=== PATIENT | male | born 1970 | race Caucasian/White ===

== ENCOUNTER 2020-08-25 10:33 | Outpatient (CLI) | payer OTHER, SELFPAY ==
[2020-08-25 11:11] LABS: Basophils Percent Auto 0.4 % (0.2-1.2); Eosinophils Percent Auto 0.5 % (0-4.4); Hematocrit 47.9 % (42.0-52.0); Hemoglobin 16.9 g/dL (14.0-18.0); Immature Granulocyte Absolute 0.03 K/mm3 (0.00-0.031); Immature Granulocyte Percent A 0.4 % (0-0.5); Lymphocytes Absolute Auto 1.67 K/mm3 (0.9-3.2); Lymphocytes Percent Auto 21.5 % (18.3-44.2); Mean Corpuscular HGB Conc 35.3 g/dl (32-36); Mean Corpuscular Hemoglobin 30.1 pg (26-34); Mean Corpuscular Volume 85.2 fl (80-100); Mean Platelet Volume 10.4 fl (7.4-10.4); Monocytes Absolute Auto 0.5 K/mm3 (0.1-0.6); Monocytes Percent Auto 6.1 % (2.6-8.5); Neutrophils Absolute Auto 5.5 K/mm3 (1.3-6.7); Neutrophils Percent Auto 71.1 % (45.5-73.1); Platelet Count Result 182 k/mm3 (150-375); Red Blood Count 5.62 M/mm3 (4.6-6.20); Red Cell Distribution Width 11.7 % (11.5-14.5); White Blood Count 7.8 K/mm3 (4.5-10.0)
[2020-08-25 11:21] LABS: Add Urine Microscopic? NO; Appearance Urine Clear (Clear); Bilirubin Urine Negative (Negative); Blood Urine Negative (Negative); Color Urine Straw (Yellow); Glucose Urine UA Negative (Negative); Ketones Urine Negative (Negative); Leukocyte Esterase Ur Negative LEU/UL (NEGATIVE); Mucus Urine Rare /lpf; Nitrate Urine Negative (Negative); Protein Urine Negative (Negative); RBC Urine 0-2 /hpf (0-2); Specific Grav Ur 1.012 (1.001-1.035); Squamous Epithelial Cell Urine Few /hpf (Few); Urobilinogen Urine Negative mg/dL (<2.0); WBC Urine 0-3 /hpf (0-3)
[2020-08-25 11:23] LABS: Hemoglobin A1C 6.2 % (<5.7)
[2020-08-25 11:25] LABS: Alanine Aminotransferase 31 U/L (4-50); Albumin Level 4.1 g/dL (3.5-5.1); Alkaline Phosphatase 69 U/L (38-126); Anion Gap 8 mmol/L (8-16); Aspartate Amino Transferase 18 U/L (17-59); Bilirubin,Total 0.4 mg/dL (0.2-1.3); Blood Urea Nitrogen 20 mg/dL (9-20); Calcium 9.2 mg/dL (8.4-10.2); Carbon Dioxide 29 mmol/L (22-30); Chloride 105 mmol/L (98-107); Cholesterol 165 mg/dL (0-200); Estimated Glomerular Filt Rate > 60; Glucose 131 mg/dL (75-110); HDL Direct 36 mg/dL; Potassium 4.3 mmol/L (3.4-5.0); Sodium 142 mmol/L (137-145); Triglycerides 68 mg/dL (<150)
[2020-08-25 11:37] LABS: LDL Cholesterol Direct 121 mg/dL
[2020-08-25 11:50] LABS: Thyroid Stimulating Hormone < 0.015 uIU/mL (0.465-4.680)
[2020-08-25 11:53] LABS: Prostate Specific Antigen 0.6 ng/mL (< OR = 4.0)
== END 2020-08-25 10:34 | disposition home or self-care (01) ==
LOC: ANHLAB 10:38
PROVIDERS: Internal Medicine Endocrinology, Diabetes & Metabolism; PCP Family Medicine; Visit Provider Physician Assistant
DX: E78.5 Hyperlipidemia, unspecified (principal); R73.03 Prediabetes; Z00.00 Encounter for general adult medical examination without abnormal findings; E05.90 Thyrotoxicosis, unspecified without thyrotoxic crisis or storm; Z12.5 Encounter for screening for malignant neoplasm of prostate
CPT/HCPCS: 36415; 80053; 80061; 81003; 83036; 84153; 84439; 84443; 85025; G0103

== ENCOUNTER 2020-09-29 10:29 | Outpatient (CLI) | payer OTHER, SELFPAY ==
[2020-09-29 11:43] LABS: Thyroid Stimulating Hormone 0.988 uIU/mL (0.465-4.680)
[2020-09-29 11:49] LABS: Free T4 Free Thyroxine 0.67 ng/mL (0.78-2.19)
[2020-10-06 06:58] LABS: Triiodothyronine T3 Free 3.5 pg/mL (2.3-4.2)
== END 2020-09-29 10:30 | disposition home or self-care (01) ==
PROVIDERS: PCP Family Medicine; Visit Provider Internal Medicine Endocrinology, Diabetes & Metabolism
DX: E05.90 Thyrotoxicosis, unspecified without thyrotoxic crisis or storm (principal); E04.9 Nontoxic goiter, unspecified
CPT/HCPCS: 36415; 84439; 84443; 84481

== ENCOUNTER → 2020-10-28 17:22 | Outpatient (CLI) | payer OTHER, SELFPAY ==
--- NOTE | ~2020-10-28 | XR_ITS ---
EXAMINATION: XR shoulder LT min 2V EXAM DATE: 10/28/2020 17:45 INDICATION: M25.512 - Pain in left shoulder . No known recent injury. TECHNIQUE: The following left shoulder projections obtained: frontal projection with internal rotatio n, frontal projection with external rotation, Grashey, and axillary (4+ views). Comparison is made to prior examination from 06/06/2016. FINDINGS: No evidence of left shoulder rotator cuff calcific tendinosis. There is mild left glenoh umeral and acromioclavicular primary osteoarthritis. There are no acute fractures or dislocations nita ntified. There is no subcutaneous gas. The soft tissue is unremarkable. There are no radiopaque f oreign bodies. IMPRESSION: Mild left shoulder osteoarthritis. Reviewed, dictated and finalized at location A. [employer] SERVICES SALES REPRESENTATIVE
== END ==
PROVIDERS: PCP Family Medicine; Visit Provider Physician Assistant
DX: M19.012 Primary osteoarthritis, left shoulder (principal)
CPT/HCPCS: 73030

== ENCOUNTER 2020-11-16 17:29 | Outpatient (CLI) | payer OTHER, SELFPAY ==
[2020-11-16 18:28] LABS: Thyroid Stimulating Hormone 0.921 uIU/mL (0.465-4.680); Total Triiodothyronine (T3) 1.23 NG/ML (0.97-1.69)
[2020-11-16 18:35] LABS: Free T4 Free Thyroxine 0.75 ng/mL (0.78-2.19)
== END 2020-11-16 17:30 | disposition home or self-care (01) ==
LOC: ANHLAB 17:30
PROVIDERS: PCP Family Medicine; Visit Provider Internal Medicine Endocrinology, Diabetes & Metabolism
DX: E05.90 Thyrotoxicosis, unspecified without thyrotoxic crisis or storm (principal)
CPT/HCPCS: 36415; 84439; 84443; 84480

== ENCOUNTER → 2020-11-24 13:16 | Outpatient (CLI) | payer OTHER, SELFPAY ==
--- NOTE | ~2020-11-24 | CT_ITS ---
EXAMINATION:CT chest wo con DATE: 11/24/2020 13:28 INDICATION: Solitary pulmonary nodule. TECHNIQUE: Computed tomography (CT) of the chest was performed without intravenous contrast. Automate d exposure control and iterative reconstruction technique were employed. The dose-length product (DLP ) was 367.87 mGy-cm. COMPARISON: Chest CT 07/24/2019, thyroid ultrasound 09/10/2018 FINDINGS: Calcified right lung nodules and calcified right hilar and mediastinal lymph nodes are cons istent with old granulomatous disease. There are a few scattered noncalcified nodules in the lungs me asuring up to 4 mm. No pleural effusion. There is a chronic multinodular goiter, likely not clinicall y significant. There is left ventricular enlargement of the heart. There are coronary artery calcific ations. No pericardial effusion. There is mild thoracic spondylosis. IMPRESSION: 1. Chronic small pulmonary nodules, likely benign. Reviewed, dictated and finalized at location A. [facility]
== END ==
PROVIDERS: Visit Provider Family Medicine
DX: R91.1 Solitary pulmonary nodule (principal); E04.1 Nontoxic single thyroid nodule; I25.10 Atherosclerotic heart disease of native coronary artery without angina pectoris; M47.814 Spondylosis without myelopathy or radiculopathy, thoracic region
CPT/HCPCS: 71250

== ENCOUNTER 2020-12-10 08:41 | Outpatient (CLI) | payer OTHER, SELFPAY ==
--- NOTE | ~2020-12-10 | MR_ITS ---
EXAMINATION: MR shoulder LT wo con DATE: 12/10/2020 09:34 INDICATION: Left shoulder pain TECHNIQUE: Magnetic resonance imaging (MRI) of the left shoulder was performed without intravenous co ntrast. Sequences included axial PD-weighted FS FSE, coronal oblique PD-weighted FS FSE, coronal obli que T2-weighted FS FSE, sagittal PD-weighted FS FSE, and sagittal T1-weighted SE. COMPARISON: None. FINDINGS: Coracoacromial arch: The acromion undersurface is curved in morphology (type II). The coracoacromial ligament is normal. M ild acromioclavicular osteoarthritis. Rotator cuff: MODERATE supraspinatus and mild infraspinatus tendinopathy. There is a predominantly articular sided tear along the superior facet footplate of the supraspinatus tendon which extends 9 mm AP and involve s approximately 50% of the tendon thickness throughout the majority of its width. There is a tiny ful l-thickness component which extends to the articular surface at the posterior margin of the tear. The re is approximately 5 mm retraction of the torn articular sided fibers. The teres minor tendon is nor mal. Mild subscapularis tendinopathy without discrete tear. Normal rotator cuff muscle bulk and signa l. Biceps tendon, glenoid labrum and glenohumeral cartilage: Long head of the biceps tendon is normal. Small linear tear extending peripherally into the substance of the superior glenoid labrum with more irregular degenerative tearing at the 10:30 position of the posterior superior labrum. Glenohumeral cartilage is normal. Fluid: Small amount of fluid in the long head biceps tendon sheath which is disproportionate to the physiolo gic amount of fluid in the glenohumeral joint space consistent with mild bicipital tenosynovitis. No loose osteochondral bodies. Small amount of fluid in the subacromial/subdeltoid bursa consistent with mild bursitis. Bones: Normal marrow signal with no edema, fracture or abnormal marrow replacing process. Mild cystic change at the greater tuberosity and at the cephalad aspect of the lesser tuberosity along the medial rim o f the intertubercular groove. IMPRESSION: 1. Mild to moderate supraspinatus tendinopathy with anomaly partial-thickness articular sided tear al anson the superior facet footplate with tiny posterior full-thickness component. 2. Tear at the superior to posterior superior glenoid labrum. 3. Mild bicipital tenosynovitis and mild subacromial/subdeltoid bursitis. Reviewed, dictated and finalized at location B. TY LIBRARY DIRECTOR IMPRESSION: 1. Mild to moderate supraspinatus tendinopathy with anomaly partial-thickness a rticular sided tear along the superior facet footplate with tiny posterior full -thickness component. 2. Tear at the superior to posterior superior glenoid labrum. 3. Mild bicipital tenosynovitis and mild subacromial/subdeltoid bursitis.
== END 2020-12-10 08:42 | disposition home or self-care (01) ==
LOC: ANHIMG 08:46
PROVIDERS: Family Provider Family Medicine; PCP Family Medicine; Visit Provider Orthopaedic Surgery
DX: S43.432A Superior glenoid labrum lesion of left shoulder, initial encounter (principal); M75.52 Bursitis of left shoulder; M75.22 Bicipital tendinitis, left shoulder
CPT/HCPCS: 73221

== ENCOUNTER → 2021-01-15 01:55 | Outpatient (CLI) | payer OTHER, SELFPAY ==
[2021-01-16 08:28] LABS: SARS-CoV-2 RNA PCR Negative
== END ==
PROVIDERS: PCP Family Medicine; Visit Provider Orthopaedic Surgery
DX: Z01.812 Encounter for preprocedural laboratory examination (principal); Z20.822 Contact with and (suspected) exposure to COVID-19
CPT/HCPCS: C9803; U0003; U0005

== ENCOUNTER 2021-01-15 08:05 | Outpatient (CLI) | payer OTHER, SELFPAY ==
--- NOTE | 2021-01-15 08:30 | ECG_ITS ---
Measurements Intervals [place] Rate: 62 P: 29 DE: 172 QRS: 34 QRSD: 104 T: 1 QT: 360 QTc: 367 Interpretive Statements SINUS RHYTHM DELAYED PRECORDIAL R/S TRANSITION VOLTAGE CRITERIA FOR LVH BORDERLINE ST-T WAVE ABNORMALITY- INFERIOR LEADS BASELINE ARTIFACT- I, II, AVR, V6 BORDERLINE ECG Electronically Signed On 01-15-2021 8:20:19 RIG WELDER by Danish Camacho D.O.
== END 2021-01-15 08:06 | disposition home or self-care (01) ==
LOC: ANHSURGERY 08:09
PROVIDERS: PCP Family Medicine; Visit Provider Orthopaedic Surgery
DX: E78.5 Hyperlipidemia, unspecified (principal); Z01.818 Encounter for other preprocedural examination; R94.31 Abnormal electrocardiogram [ECG] [EKG]
CPT/HCPCS: 93005

== ENCOUNTER 2021-01-18 01:26 | Day surgery (SDC) | payer OTHER, SELFPAY ==
[2021-01-12 12:51] VITALS: BMI 36.0
[2021-01-18] VITALS (8 sets, daily range): BP systolic 118–144; BP diastolic 72–86; PULSE 56–82; RESP 11–20; TEMP 36.3–36.4; O2SAT 97–100
--- NOTE | 2021-01-18 06:55 | P.PNAN_ITS ---
Anes - Initial Pre Proc Eval Procedure: Operation Date: 01/18/21 07:30 Proposed Procedures p Left Rotator Cuff Repair Acromioplasty With Distal Clavicle Excision - Roman Hopknis MD Date/Time: 01/18/21 06:55 Surgeon: Roman Hopkins MD Pre Op Diagnosis: Left Rotator Cuff Tear, AC Arthritis Patient Data Age: 50 Gender: M Height: 5 ft 10 in Weight: 114 kg Allergies Allergy/AdvReac Type Severity Reaction Status Date / Time No Known Allergies Allergy Verified 01/18/21 06:54 Home Medications Medication Instructions Recorded Confirmed Type atorvastatin 40 mg tablet 40 mg PO DAILY #90 tablet 07/06/20 01/13/21 Rx methimazole [Tapazole] See Rx Instructions .ROUTE .COMPLEX 01/12/21 01/13/21 History Patient hx anesthesia problems: post op nausea/vomiting Family hx anesthesia problems: none PMFSH Past Medical History Medical History BMI 37.0-37.9, adult Left rotator cuff tear Left shoulder pain Surgical History Surgical History H/O shoulder surgery right Acromioplasty and distal clavicle excision, May 2015 Family History Family History Father Family history of obesity Family history of blood dyscrasia Depression Hypertension Family history of alcoholism Family history of diabetes mellitus in first degree relative Family history of elevated blood lipids, Onset Age: 35 Grandparent Family history of obesity Hypertension Asthma Cerebrovascular accident Family history of Alzheimer's disease Mother Family history of mental disorder Depression Family history of migraine headaches Hypertension Family history of diabetes mellitus in first degree relative Sibling Patient's sister is in good health, Onset Age: 38 Social History Social History Smoking status: Never smoker Smoking end date: 11/13/16 Alcohol intake: current Substance use: never Living arrangements: with friend(s) 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 Questions were solicited and answers provided to the satisfaction of the patient/family/POA.
[2021-01-18] MEDS: ACETAMINOPHEN 500 MG TABLET 1000 MG PO (07:06)
[2021-01-18] MEDS: LACTATED RINGERS 1,000 ML 30 ML IV CONT ×2 (07:10→09:20)
--- NOTE | 2021-01-18 07:10 | WPDHPUPDATE1 ---
History and Physical Update Update Date/Time: 01/18/21 07:10 History and Physical has been reviewed, including an updated exam of the patient. There are NO changes in the patient's condition. Risks, benefits, and alternatives have been discussed and questions answered. Patient agrees to proceed with procedure.
[2021-01-18] MEDS: KETOROLAC 15 MG/ML VIAL (*BKC) IV PUSH (07:11)
[2021-01-18] MEDS: ceFAZolin 2 GM/D5W 50 ML 2 GM/50 ML BAG IVPB (07:35)
[2021-01-18] MEDS: BUPIVACAINE/EPINEPHRINE 0.25% 50 ML VIAL INFILTRATE (08:15)
--- NOTE | 2021-01-18 09:06 | P.OP_ITS ---
Procedure Note - Detailed Date of procedure: 01/18/21 Pre-op diagnosis: Left Rotator Cuff Tear, AC Arthritis Post-op diagnosis: same Procedure performed: Left rotator cuff repair with distal clavicle excision Description of procedure: Patient was identified and proper site identified. He was then taken to the operating room and transferred to the or table taking care to pad the torso and extremities. After general anesthetic induction and intubation, he was put in a semi beach chair position in the usual manner for a left shoulder procedure. His head was secured taking care to neither rotate nor extend the head and neck. The left upper extremity was prepped and draped free in usual sterile fashion. The subcutaneous tissue in the area of the incision was injected with 10 cc of 0.25% Marcaine and epinephrine solution. An oblique anterior incision was made extending from the AC joint distally in line with the fibers of the deltoid. Subcutaneous tissue was sharply dissected down to the deltoid fascia. The deltoid was dissected off the anterior portion of the acromion in the distal end of the clavicle. A 2 cm split was made at the junction between the anterior and middle thirds of the deltoid. Using the microsagittal saw the last 8 mm of clavicle removed. The saw was also used to perform the acromioplasty and then the undersurface of the acromion was rasped smooth. There was thickened inflamed bursa which was debrided off of the rotator cuff allowing for full inspection. There was an erosive type tear at the anterior portion of the supraspinatus. Tendon edges were freshened up and the tuberosity was prepared for the repair. This was carried out with 2. Ethibond suture through a bony bridge. The remainder of the repair was carried out with 2. Ethibond in a [id number] fashion. This gave a cotton repair which was stable as the shoulder was taken through range of motion. The wound was irrigated with sterile NaCl solution. Catheter for the pain pump was placed into the subacromial space taking sure not to entrap during the closure. Once the wound was closed, it was hooked up to the reservoir which had been filled with 100 mL of 1% lidocaine running at a 2 mL/hour rate. The deltoid was repaired back to the acromion with 2. Ethibond suture passed through bone and the remainder of the deltoid repair carried out with 2. Vicryl. Subcutaneous tissue was reapproximated with 2. Strata fix and then tissue adhesive used for the skin. Sterile dressing was applied. There were no known intraoperative complications, and perioperative antibiotics were administered. Anesthesia: GETA Surgeon: Roman Hopkins MD Entry Level Automotive Technician: Brenda Marte Estimated blood loss (mL): 30 Drains: No Packing: No Pathology: none sent Complications: No immediate complications Condition: stable Disposition: PACU
== END 2021-01-18 11:20 | disposition home or self-care (01) ==
PROVIDERS: PCP Family Medicine; Visit Provider Orthopaedic Surgery
PROC: (CPT 23420; principal; 2021-01-18 07:30)
DX: M75.112 Incomplete rotator cuff tear or rupture of left shoulder, not specified as traumatic (principal); M19.012 Primary osteoarthritis, left shoulder; E66.9 Obesity, unspecified; Z68.37 Body mass index [BMI] 37.0-37.9, adult
CPT/HCPCS: 23412; 23120; A4565; A9270; J0690; J1100; J1170; J1885; J2250; J2405; J2704; J2710; J3010; J7120

== ENCOUNTER 2021-07-07 12:25 | Outpatient (CLI) | payer OTHER, SELFPAY ==
--- NOTE | ~2021-07-07 | US_ITS ---
EXAMINATION: US thyroid DATE: 07/07/2021 12:52 INDICATION: Thyroid nodules TECHNIQUE: Multiple ultrasound images of the thyroid were obtained. COMPARISON: 09/10/2018 FINDINGS: The right thyroid lobe measures 6.9 x 3.5 x 3.9 cm. The left thyroid lobe measures 5.2 x 1.4 x 1.2 c m. Wider than tall 3.8 cm solid hypoechoic nodule with smooth margins and without echogenic foci in the right thyroid lobe (TI-RADS 4, moderately suspicious , FNA if >=1.5 cm, annual followup is >=1 cm ) which is slightly decreased in size since the prior study. No significant interval change in a 9 mm very hypoechoic wider than tall solid nodule with smooth margins and without echogenic foci, also TI RADS 4 at the superior right thyroid. No significant interval change in an 8 mm wider than tall very hypoechoic nodule with single echogenic focus in smooth margins in the superior left thyroid lobe (T I-RADS 5, highly suspicious , FNA if >=1.0 cm, annual followup is >0.5 cm). IMPRESSION: 1. No significant interval change in 3 thyroid nodules, the largest 3.8 cm TI RADS 4 nodule with prio r biopsy consistent with benign follicular nodule and the 2 additional subcentimeter nodules below size criteria for biopsy. Reviewed, dictated and finalized at location B. IMPRESSION: 1. No significant interval change in 3 thyroid nodules, the largest 3.8 cm TI R ADS 4 nodule with prior biopsy consistent with benign follicular nodule and t he 2 additional subcentimeter nodules below size criteria for biopsy.
[2021-07-07 14:02] LABS: Thyroid Stimulating Hormone 0.068 uIU/mL (0.465-4.680)
[2021-07-07 14:25] LABS: Free T4 Free Thyroxine 1.01 ng/mL (0.78-2.19)
[2021-07-10 08:52] LABS: Triiodothyronine T3 Free 4.2 pg/mL (2.3-4.2)
== END 2021-07-07 12:26 | disposition home or self-care (01) ==
PROVIDERS: PCP Family Medicine; Visit Provider Internal Medicine Endocrinology, Diabetes & Metabolism
DX: E04.1 Nontoxic single thyroid nodule (principal); E05.90 Thyrotoxicosis, unspecified without thyrotoxic crisis or storm
CPT/HCPCS: 36415; 76536; 84439; 84443; 84481

== ENCOUNTER 2021-09-24 12:08 | Outpatient (CLI) | payer OTHER, SELFPAY ==
[2021-09-24 13:15] LABS: Free T4 Free Thyroxine 0.86 ng/mL (0.78-2.19)
== END 2021-09-24 12:09 | disposition home or self-care (01) ==
LOC: ANHLAB 12:10
PROVIDERS: PCP Family Medicine; Visit Provider Internal Medicine Endocrinology, Diabetes & Metabolism
DX: E05.90 Thyrotoxicosis, unspecified without thyrotoxic crisis or storm (principal)
CPT/HCPCS: 36415; 84439; 84443

== ENCOUNTER 2021-10-27 15:56 | Outpatient (CLI) | payer OTHER, SELFPAY ==
[2021-10-27 17:14] LABS: Alanine Aminotransferase 42 U/L (4-50); Albumin Level 4.3 g/dL (3.5-5.1); Alkaline Phosphatase 84 U/L (38-126); Anion Gap 6 mmol/L (8-16); Aspartate Amino Transferase 23 U/L (17-59); Bilirubin,Total 0.6 mg/dL (0.2-1.3); Blood Urea Nitrogen 14 mg/dL (9-20); Carbon Dioxide 27 mmol/L (22-30); Chloride 103 mmol/L (98-107); Estimated Glomerular Filt Rate > 60; Glucose 145 mg/dL (65-110); Potassium 3.7 mmol/L (3.4-5.0); Sodium 136 mmol/L (137-145)
[2021-10-27 17:36] LABS: Add Urine Microscopic? YES; Appearance Urine Clear (Clear); Bilirubin Urine Negative (Negative); Blood Urine 1+ (Negative); Color Urine Yellow (Yellow); Glucose Urine UA Negative (Negative); Ketones Urine Negative (Negative); Leukocyte Esterase Ur Negative LEU/UL (NEGATIVE); Mucus Urine Few /lpf; Nitrate Urine Negative (Negative); Protein Urine Negative (Negative); Specific Grav Ur 1.027 (1.001-1.035); Squamous Epithelial Cell Urine Rare /hpf (Few); Urobilinogen Urine Negative mg/dL (<2.0); WBC Urine 0-3 /hpf (0-3)
[2021-10-27 17:43] LABS: Prostate Specific Antigen 0.6 ng/mL (< OR = 4.0)
[2021-10-27 19:43] LABS: Hemoglobin A1C 8.7 % (<5.7)
== END 2021-10-27 15:57 | disposition home or self-care (01) ==
LOC: ANHLAB 15:58
PROVIDERS: PCP Family Medicine; Visit Provider Physician Assistant
DX: Z12.5 Encounter for screening for malignant neoplasm of prostate (principal); E78.5 Hyperlipidemia, unspecified; R73.03 Prediabetes; E05.90 Thyrotoxicosis, unspecified without thyrotoxic crisis or storm; Z00.00 Encounter for general adult medical examination without abnormal findings
CPT/HCPCS: 36415; 80053; 81001; 83036; 84153

== ENCOUNTER 2021-11-04 15:11 | Outpatient (CLI) | payer OTHER, SELFPAY ==
[2021-11-04 15:49] LABS: Hematocrit 49.8 % (42.0-52.0); Hemoglobin 17.4 g/dL (14.0-18.0); Mean Corpuscular HGB Conc 34.9 g/dl (32-36); Mean Corpuscular Hemoglobin 29.8 pg (26-34); Mean Corpuscular Volume 85.3 fl (80-100); Mean Platelet Volume 10.1 fl (7.4-10.4); Platelet Count Result 214 k/mm3 (150-375); Red Blood Count 5.84 M/mm3 (4.6-6.20); Red Cell Distribution Width 12.2 % (11.5-14.5); White Blood Count 8.4 K/mm3 (4.5-10.0)
[2021-11-04 16:05] LABS: Cholesterol 202 mg/dL (0-200); HDL Direct 31 mg/dL; Triglycerides 159 mg/dL (<150)
[2021-11-04 16:20] LABS: LDL Cholesterol Direct 139 mg/dL
== END 2021-11-04 15:12 | disposition home or self-care (01) ==
PROVIDERS: PCP Family Medicine; Visit Provider Physician Assistant
DX: E78.5 Hyperlipidemia, unspecified (principal); R73.03 Prediabetes; E05.90 Thyrotoxicosis, unspecified without thyrotoxic crisis or storm; Z00.00 Encounter for general adult medical examination without abnormal findings
CPT/HCPCS: 36415; 80061; 85027

== ENCOUNTER 2022-03-05 13:16 | Outpatient (CLI) | payer OTHER, SELFPAY ==
[2022-03-05 13:53] LABS: Add Urine Microscopic? YES; Appearance Urine Clear (Clear); Bilirubin Urine Negative (Negative); Blood Urine 1+ (Negative); Color Urine Yellow (Yellow); Glucose Urine UA Negative (Negative); Ketones Urine Negative (Negative); Leukocyte Esterase Ur Negative LEU/UL (NEGATIVE); Mucus Urine Rare /lpf; Nitrate Urine Negative (Negative); Protein Urine Negative (Negative); RBC Urine 0-2 /hpf (0-2); Specific Grav Ur 1.026 (1.001-1.035); Squamous Epithelial Cell Urine Few /hpf (Few); Urobilinogen Urine Negative mg/dL (<2.0); WBC Urine 0-3 /hpf (0-3)
[2022-03-05 14:06] LABS: Hemoglobin A1C 6.2 % (<5.7)
[2022-03-05 14:44] LABS: Free T4 Free Thyroxine 0.65 ng/mL (0.78-2.19)
[2022-03-09 14:31] LABS: Triiodothyronine T3 Free 3.6 pg/mL (2.3-4.2)
== END 2022-03-05 13:17 | disposition home or self-care (01) ==
PROVIDERS: PCP Family Medicine; Referring Provider Physician Assistant; Visit Provider Internal Medicine Endocrinology, Diabetes & Metabolism
DX: E05.90 Thyrotoxicosis, unspecified without thyrotoxic crisis or storm (principal); E04.1 Nontoxic single thyroid nodule; E11.9 Type 2 diabetes mellitus without complications; R31.9 Hematuria, unspecified
CPT/HCPCS: 36415; 81001; 83036; 84439; 84443; 84481

== ENCOUNTER 2022-07-11 12:01 | Outpatient (CLI) | payer OTHER, SELFPAY ==
[2022-07-11 13:01] LABS: Free T4 Free Thyroxine 1.35 ng/mL (0.78-2.19)
[2022-07-13 20:12] LABS: Triiodothyronine T3 Free 4.1 pg/mL (2.3-4.2)
== END 2022-07-11 12:02 | disposition home or self-care (01) ==
LOC: ANHLAB 12:03
PROVIDERS: PCP Family Medicine; Visit Provider Internal Medicine Endocrinology, Diabetes & Metabolism
DX: E04.9 Nontoxic goiter, unspecified (principal); E05.90 Thyrotoxicosis, unspecified without thyrotoxic crisis or storm
CPT/HCPCS: 36415; 84439; 84443; 84481

== ENCOUNTER 2022-08-12 15:25 | Outpatient (CLI) | payer OTHER, SELFPAY ==
[2022-08-12 19:08] LABS: Hemoglobin A1C 5.6 % (<5.7)
== END 2022-08-12 15:26 | disposition home or self-care (01) ==
LOC: ANHLAB 15:27
PROVIDERS: PCP Family Medicine; Visit Provider Physician Assistant
DX: E11.9 Type 2 diabetes mellitus without complications (principal)
CPT/HCPCS: 36415; 83036

== ENCOUNTER 2022-10-25 12:37 | Outpatient (CLI) | payer OTHER, SELFPAY ==
--- NOTE | 2022-10-25 12:56 | ECG_ITS ---
Measurements Intervals [place] Rate: 56 P: 30 SC: 175 QRS: 17 QRSD: 107 T: -6 QT: 390 QTc: 379 Interpretive Statements SINUS BRADYCARDIA COMPARED TO ECG 01/15/2021 08:41:18 SINUS BRADYCARDIA NOW PRESENT Electronically Signed On 10-25-2022 16:36:59 MACHINE FILLER by Krystal Lama M.D.
== END 2022-10-25 12:38 | disposition home or self-care (01) ==
PROVIDERS: PCP Family Medicine; Visit Provider Surgery
DX: K42.9 Umbilical hernia without obstruction or gangrene (principal); E78.5 Hyperlipidemia, unspecified
CPT/HCPCS: 36415; 86850; 86900; 86901; 93005

== ENCOUNTER 2022-10-31 00:54 | Day surgery (SDC) | payer OTHER, SELFPAY ==
[2022-10-18 14:53] VITALS: BMI 35.7
--- NOTE | 2022-10-18 14:57 | PC.NURSE ---
Report to the Outpatient Waiting Room, entrance under the green pavilion located off [facility], at time 6:00 on date 10/31/22. Planned Procedure Time: 7:30. Time changes happen often and if your time is changed the preop area will call you the afternoon before. - You and your visitor will be asked to self-screen and do not enter if you have any COVID symptoms. - Only one visitor is requested with a max of two and NO children visitors are allowed at this time. - The patient visitor may be requested to leave or wait in car when not with patient due to distancing restrictions. - A mask is optional within the hospital. Patients may have clear liquids (water, carbonated beverages, clear teas, apple juice) until 3 hours prior to surgery (4:30) with a maximum of 20 ounces. - No food from midnight until time of surgery Take the following medications with a SIP of water the morning of surgery: N/A Medications to discontinue per physician: N/A Date to take last dose: N/A Please no make-up, nail chinese, hairspray, perfume, deodorant, or body powder the day of surgery. No jewelry (including any body piercings) or valuables the day of surgery, leave them at home. Please take a shower or bath the night before, or the morning of, surgery with an antibacterial soap (HIBICLENS). Wear comfortable, loose fitting clothing. - Jewelry must be removed prior to entering the operating room. Rings and piercings that are not removed may be cut off. - The hospital will not accept responsibility for valuables. - Please leave all valuables, including medications, at home the day of surgery. If you are going home after surgery, a licensed oil transport driver must drive you home. - NO public transportation without another adult if you receive anesthesia. - We recommend that an adult stay with you for 24 hours following discharge. - We also recommend that you do not drive, make important decision, drink alcoholic beverages, or take any drugs that were not prescribed by your health care provider for at least 24 hours after your discharge time. Follow any additional instructions given to you from your surgeon. If you or anyone in your household have experienced Covid symptoms in the past week, please notify your surgeon or the nurse liaison at the phone number below for possible testing. Telephone instructions given to PT - CHAR ROJAS and asked if any additional questions and then verbalized understanding. Patient advised to call surgeon office or pre surgery nurse liaison [phone] if any additional questions.
--- NOTE | 2022-10-28 15:06 | PM.HPGS ---
History of Present Illness History of Present Illness Consent: Risks, benefits, and alternativesA laparoscopic umbilical hernia repair with mesh has been discussed and questions answered. Patient agrees to proceed with procedure. Chief complaint: Umb Hernia Narrative: Steve Frankel is a 52 year old male Mr Frankel that recently presented to the office at the request of Lorenzo Barlow PA-C for an evaluation of an umbilical hernia. Patient reports that he first noticed a sharp pain at his umbilicus. Patient reports then he noticed a bulge at his umbilicus. Patient reports that the area is sensitive to the touch, but he has not noticed the bulge getting larger. He reports that it is there everyday but he is able to reduce the hernia and make it smaller. He reports that for the last week he has had pain and protrudes more with BMs. He reports no change is BMs however. He reports that he does not notice the hernia when he is lifting but admits that he is not paying attention to the hernia when lifting. He does report going to the gym for cross fit 3-5 times a week. Patient denies any pervious abdominal surgeries. Patient is here for an evaluation and possible repair.? Review of Systems Constitutional: Comments: Const Reports no additional complaints, Denies frequent falls, Denies headache(s) and Reports other (no recent weight change, no fever) Eyes Denies blurry vision, Denies itchy eyes, Denies photophobia and Denies spots in vision ENT Reports Normal hearing present, Denies headache(s), Denies hoarseness, Denies lip swelling and Denies sore throat Card Denies chest pain at rest, Denies irregular heart rhythm and Denies dyspnea, history of hyperlipidemia Resp Denies chest congestion, Denies cough and Denies dyspnea GI Denies melena and Denies coffee ground emesis Musc Denies abnormal gait and Denies back pain Skin/ Breast Denies new lesions, Denies rash and Denies wounds Neuro Reports Normal hearing present, Denies abnormal gait, Denies confusion, Denies frequent falls, Denies headache(s), Denies convulsions and Denies seizure-like activity Psych Denies confusion and Denies depression Endo Denies cold intolerance and Denies heat intolerance, history of hyperthyroidism, on medication Luis Felipe/ Lymph Denies easy bleeding, Denies easy bruising and Denies lymphadenopathy Aller/ Immun Denies itchy eyes and Denies lip swelling PMFSH Past Medical History Medical History BMI 37.0-37.9, adult Diabetes mellitus HLD (hyperlipidemia) Hyperthyroidism Left shoulder pain Pure hypercholesterolemia Tobacco abuse Tobacco use Surgical History Surgical History H/O shoulder surgery right Acromioplasty and distal clavicle excision, May 2015 Left rotator cuff tear Left rotator cuff repair with DCE January 2021 Family History Family History Father Family history of obesity Family history of blood dyscrasia Depression Hypertension Family history of alcoholism Family history of diabetes mellitus in first degree relative Family history of elevated blood lipids, Onset Age: 35 Grandparent Family history of obesity Hypertension Asthma Cerebrovascular accident Family history of Alzheimer's disease Mother Family history of mental disorder Depression Family history of migraine headaches Hypertension Family history of diabetes mellitus in first degree relative Sibling Patient's sister is in good health, Onset Age: 38 Social History Social History Smoking packs per day: 0.5 Smoking cigarettes per day: 10.0 Years smoked: 35 Smoking pack-years: 17.50 Smoking status: Current every day smoker Tobacco type: cigarettes Second hand tobacco smoke exposure: No Smoking end date: 11/13/16 Alcohol intake: never Substance use: never Substance use type: does
--- NOTE | 2022-10-29 09:48 | WPDANESEPPF ---
Anes - Initial Pre Proc Eval Procedure: Operation Date: 10/31/22 07:30 Proposed Procedures p Laparoscopic Umbilical Hernia Repair with Mesh - Manuel Foss MD Date/Time: 10/29/22 09:48 Surgeon: Manuel Foss MD Pre Op Diagnosis: Umb Hernia Patient Data Age: 52 Gender: M Height: 1.78 m Weight: 113 kg Allergies Allergy/AdvReac Type Severity Reaction Status Date / Time No Known Allergies Allergy Verified 10/31/22 06:28 Home Medications Medication Instructions Recorded Confirmed Type atorvastatin 40 mg tablet 40 mg PO DAILY #90 tabs 05/02/22 10/31/22 Rx methimazole 5 mg tablet 5 mg PO .COMPLEX 07/14/22 10/31/22 History Patient hx anesthesia problems: none Family hx anesthesia problems: none Results Review: All pre-operative results and documents have been reviewed as part of the pre-operative evaluation. [facility] Past Medical History Medical History BMI 37.0-37.9, adult Diabetes mellitus HLD (hyperlipidemia) Hyperthyroidism Left shoulder pain Pure hypercholesterolemia Tobacco abuse Tobacco use Surgical History Surgical History H/O shoulder surgery right Acromioplasty and distal clavicle excision, May 2015 Left rotator cuff tear Left rotator cuff repair with DCE January 2021 Family History Family History Father Family history of obesity Family history of blood dyscrasia Depression Hypertension Family history of alcoholism Family history of diabetes mellitus in first degree relative Family history of elevated blood lipids, Onset Age: 35 Grandparent Family history of obesity Hypertension Asthma Cerebrovascular accident Family history of Alzheimer's disease Mother Family history of mental disorder Depression Family history of migraine headaches Hypertension Family history of diabetes mellitus in first degree relative Sibling Patient's sister is in good health, Onset Age: 38 Social History Social History Smoking packs per day: 0.5 Smoking cigarettes per day: 10.0 Years smoked: 35 Smoking pack-years: 17.50 Smoking status: Current every day smoker Tobacco type: cigarettes Second hand tobacco smoke exposure: No Smoking end date: 11/13/16 Alcohol intake: never Substance use: never Substance use type: does not use Living arrangements: alone 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, [employer] Gender identity (if verbalized by the patient): Male Sexual Orientation (if Verbalized by the Patient): Straight or Heterosexual Spiritual care concerns: No Anes - Eval Final PreProcedure Day of Procedure 10/29/22 09:48 Patient weight: obese Heart: regular rate and rhythm Lungs: clear to auscultation Airway: Mallampati scale class II Neurological: alert and oriented Last oral intake: >/= 8 hours ASA classification: III Emergent: no Anesthetic plan: proceed Anesthesia type and monitoring: general ETT and standard monitoring Results Review: All pre-operative results and documents have been reviewed as part of the pre-operative evaluation. Informed Consent: The patient's anesthetic plan and its attendant risks and benefits were discussed with the patient/family/POA. Questions were solicited and answers provided to the satisfaction of the patient/family/POA.
[2022-10-31] VITALS (10 sets, daily range): BP systolic 112–132; BP diastolic 60–81; PULSE 53–74; RESP 10–20; TEMP 36.4–36.7; O2SAT 93–99
[2022-10-31] MEDS: ACETAMINOPHEN 500 MG TABLET 1000 MG PO (06:32)
[2022-10-31] MEDS: LACTATED RINGERS 1,000 ML 30 ML IV CONT ×2 (07:11→09:14)
[2022-10-31] MEDS: KETOROLAC 15 MG/ML VIAL (*BKC) IV PUSH (07:12)
--- NOTE | 2022-10-31 07:13 | WPDHPUPDATE1 ---
History and Physical Update Update Date/Time: 10/31/22 07:13 History and Physical has been reviewed, including an updated exam of the patient. There are NO changes in the patient's condition. Risks, benefits, and alternatives have been discussed and questions answered. Patient agrees to proceed with procedure.
[2022-10-31] MEDS: ceFAZolin 2 GM/D5W 50 ML 2 GM/50 ML BAG IVPB (07:27)
[2022-10-31] MEDS: BUPIVACAINE/EPINEPHRINE 0.5% 10 ML VIAL 30 ML INFILTRATE (07:27)
--- NOTE | 2022-10-31 09:15 | W.PM.PROC2 ---
Procedure Note - Detailed Date of Procedure 10/31/22 Pre-op Diagnosis Umbilical Hernia Post-op Diagnosis Same Procedure Performed Laparoscopic umbilical hernia repair with mesh Surgeon Manuel Foss MD Residence Director [ ] RN, OR legal document assistant Anesthesia General Findings Patient had a fascial defect slightly below and inferior to the umbilicus. There appeared to be also thin fascia both inferior and superior to this along the midline. As best I could this measured 1.5 cm for the actual visible fascial defect. No obvious inguinal hernia on the right Possible dimpling in the indirect space and possible early direct inguinal hernia on the left. Description of Procedure DESCRIPTION OF PROCEDURE: The patient was placed in the supine position on the operative table and after induction of adequate general endotracheal anesthesia by Arturo Anesthesia, the entire abdomen was prepped and draped in usual sterile fashion and the head placed slightly up. An Ioban drape was placed over the exposed part of the abdomen and used to prevent contact of the mesh with the skin during this clean case. A time-out was performed with the surgery team confirming patient and site of surgery. Following this, local anesthetic was placed in a spot selected about two finger-breadths below the costal margin on the left and a small incision made after instilling the local anesthetic using 0.5% Marcaine with epinephrine. Following this, a Veress needle technique using the water drop test was completed. Using 2 towel clips on the skin, I carefully elevated the skin and then passed the Veress needle into the abdomen and we could see that the saline dropped through the Veress needle easily. CO2 gas was connected and the abdomen was insufflated to 14 mm Hg pressure with CO2 gas. Following this, the 0 degree 5 mm laparoscope was placed inside a 5 mm trocar, which was carefully twisted into the abdomen without difficulty, seeing a open pneumoperitoneum as we entered. Then, the trocar was removed, the sleeve confirmed to be nicely within the abdomen, and we carefully inspected the anterior abdomen. Careful inspection of the abdomen revealed no inguinal hernia on the right. On the left there appeared to be a small dimple in the region of the typical opening to a indirect inguinal hernia and a fat covered possible early direct defect. One picture of this was taken with a laparoscope. A defect in the fascia under the umbilicus that was seen initially,and appeared to be about 1.5 cm in size. we then switched to the 30 degree 5 mm scope for better upward view of the anterior abdominal wall. The midline fascia both slightly inferior and superior to this area seemed fairly thin and very visibly white under the peritoneum. After placing a 12 mm port in the left lower quadrant under direct vision with the laparoscope, we could see up into an estimated 1.5 cm defect. There was no incarceration of any omentum or any other adhesions to the underside of the umbilical area. There was no significant preperitoneal fat or attachments to the falciform ligament that were in the way to do the repair. Due to the patient's size and the angles I felt most comfortable tacking this plan piece of mesh in place with another port and this was placed even with the umbilicus far lateral on the right. It was a 5 mm port with the internal balloon tip. The balloon was inflated with 5 cc of air after being placed under direct vision with laparoscope. Following this, we carefully planned by measuring the defect. Our mesh, a circular 11 cm piece of Venta-lite mesh was chosen, so that we would have 4 -5 cm of overlap in all directions by the circular mesh covering the umbilical defect. Following this, the Ventra-lite Echo mesh hernia system was I de-aired with saline for 20-30 seconds, rolled and this was inserted through the LLQ 12 mm port after rolling it to protect the absorbable covering on the do
[2022-10-31] MEDS: fentaNYL CITRATE INJ (*CRX) 100 MCG/2 ML VIAL 25 MCG IV PUSH ×3 (10:55→11:24)
== END 2022-10-31 11:45 | disposition home or self-care (01) ==
PROVIDERS: PCP Family Medicine; Visit Provider Surgery
PROC: (CPT 49652; principal; 2022-10-31 07:30)
DX: K42.9 Umbilical hernia without obstruction or gangrene (principal); E11.9 Type 2 diabetes mellitus without complications; E78.5 Hyperlipidemia, unspecified; E05.90 Thyrotoxicosis, unspecified without thyrotoxic crisis or storm; F17.210 Nicotine dependence, cigarettes, uncomplicated; E66.9 Obesity, unspecified; Z68.35 Body mass index [BMI] 35.0-35.9, adult
CPT/HCPCS: 49652; A9270; J0690; J1100; J1885; J2250; J2405; J2704; J2710; J3010; J7030; J7120

== ENCOUNTER 2023-01-17 11:22 | Outpatient (CLI) | payer OTHER, SELFPAY ==
[2023-01-17 11:53] LABS: Hematocrit 53.2 % (42.0-52.0); Hemoglobin 17.8 g/dL (14.0-18.0); Mean Corpuscular HGB Conc 33.5 g/dl (32-36); Mean Corpuscular Hemoglobin 29.6 pg (26-34); Mean Corpuscular Volume 88.4 fl (80-100); Mean Platelet Volume 9.6 fl (7.4-10.4); Platelet Count Result 188 k/mm3 (150-375); Red Blood Count 6.02 M/mm3 (4.6-6.20); Red Cell Distribution Width 12.2 % (11.5-14.5); White Blood Count 7.8 K/mm3 (4.5-10.0)
[2023-01-17 11:55] LABS: Appearance Urine Clear (Clear); Bilirubin Urine Negative (Negative); Blood Urine Negative (Negative); Color Urine Yellow (Yellow); Glucose Urine UA Negative (Negative); Ketones Urine Negative (Negative); Leukocyte Esterase Ur Negative LEU/UL (NEGATIVE); Nitrate Urine Negative (Negative); Protein Urine Negative (Negative); Specific Grav Ur 1.021 (1.001-1.035); Urobilinogen Urine 0.2 mg/dL (<2.0)
[2023-01-17 12:03] LABS: Add Urine Microscopic? NO
[2023-01-17 12:03] LABS: Alanine Aminotransferase 39 U/L (6-50); Albumin Level 4.3 g/dL (3.5-5.1); Alkaline Phosphatase 92 U/L (38-126); Anion Gap 8 mmol/L (8-16); Aspartate Amino Transferase 22 U/L (17-59); Bilirubin,Total 0.7 mg/dL (0.2-1.3); Blood Urea Nitrogen 16 mg/dL (9-20); Calcium 8.7 mg/dL (8.4-10.2); Carbon Dioxide 24 mmol/L (22-30); Chloride 107 mmol/L (98-107); Cholesterol 191 mg/dL (0-200); Estimated Glomerular Filt Rate > 60; Glucose 147 mg/dL (65-110); HDL Direct 28 mg/dL; Sodium 139 mmol/L (137-145); Triglycerides 137 mg/dL (<150)
[2023-01-17 12:07] LABS: Hemoglobin A1C 7.3 % (<5.7)
[2023-01-17 12:08] LABS: Creatinine Urine 160.8 mg/dL
[2023-01-17 12:12] LABS: MALB Creatinine Ratio 4.4 mg/g (0-30); Microalbumin Urine Random 7.1 mg/L (0-16.7)
[2023-01-17 12:14] LABS: LDL Cholesterol Direct 132 mg/dL
[2023-01-17 12:33] LABS: Free T4 Free Thyroxine 1.18 ng/mL (0.78-2.19); Thyroid Stimulating Hormone 0.099 uIU/mL (0.465-4.680)
[2023-01-17 12:34] LABS: Prostate Specific Antigen 0.4 ng/mL (< OR = 4.0)
== END 2023-01-17 11:23 | disposition home or self-care (01) ==
PROVIDERS: PCP Family Medicine; Referring Provider Internal Medicine Endocrinology, Diabetes & Metabolism; Visit Provider Physician Assistant
DX: Z00.00 Encounter for general adult medical examination without abnormal findings (principal); E11.9 Type 2 diabetes mellitus without complications; E78.5 Hyperlipidemia, unspecified; E05.90 Thyrotoxicosis, unspecified without thyrotoxic crisis or storm; Z72.0 Tobacco use; R35.1 Nocturia
CPT/HCPCS: 36415; 80053; 80061; 81003; 82043; 83036; 84153; 84439; 84443; 85027

== ENCOUNTER 2023-06-26 08:53 | Outpatient (CLI) | payer OTHER, SELFPAY ==
[2023-06-26 10:22] LABS: Alanine Aminotransferase 33 U/L (6-50); Albumin Level 4.2 g/dL (3.5-5.1); Alkaline Phosphatase 79 U/L (38-126); Anion Gap 4 mmol/L (8-16); Aspartate Amino Transferase 20 U/L (17-59); Bilirubin,Total 0.5 mg/dL (0.2-1.3); Blood Urea Nitrogen 22 mg/dL (9-20); Calcium 8.6 mg/dL (8.4-10.2); Carbon Dioxide 28 mmol/L (22-30); Chloride 104 mmol/L (98-107); Estimated Glomerular Filt Rate > 60; Glucose 174 mg/dL (65-110); Potassium 4.2 mmol/L (3.4-5.0); Sodium 136 mmol/L (137-145)
[2023-06-26 10:27] LABS: Hemoglobin A1C 6.7 % (<5.7)
== END 2023-06-26 08:54 | disposition home or self-care (01) ==
LOC: ANHLAB 08:55
PROVIDERS: PCP Family Medicine; Visit Provider Physician Assistant
DX: E88.81 Metabolic syndrome and other insulin resistance (principal); E11.9 Type 2 diabetes mellitus without complications
CPT/HCPCS: 36415; 80053; 83036

== ENCOUNTER 2023-12-21 09:00 | Outpatient (CLI) | payer OTHER, SELFPAY ==
[2023-12-21 09:25] LABS: Hemoglobin 17.2 g/dL (14.0-18.0); Mean Corpuscular HGB Conc 33.7 g/dl (32-36); Mean Corpuscular Hemoglobin 29.6 pg (26-34); Mean Corpuscular Volume 87.6 fl (80-100); Mean Platelet Volume 10.3 fl (7.4-10.4); Platelet Count Result 167 k/mm3 (150-375); Red Blood Count 5.82 M/mm3 (4.6-6.20); Red Cell Distribution Width 11.9 % (11.5-14.5); White Blood Count 6.4 K/mm3 (4.5-10.0)
[2023-12-21 09:38] LABS: Alanine Aminotransferase 34 U/L (6-50); Albumin Level 3.9 g/dL (3.5-5.1); Alkaline Phosphatase 92 U/L (38-126); Anion Gap 4 mmol/L (8-16); Aspartate Amino Transferase 22 U/L (17-59); Bilirubin,Total 0.5 mg/dL (0.2-1.3); Blood Urea Nitrogen 21 mg/dL (9-20); Calcium 8.7 mg/dL (8.4-10.2); Carbon Dioxide 28 mmol/L (22-30); Chloride 107 mmol/L (98-107); Cholesterol 165 mg/dL (0-200); Estimated Glomerular Filt Rate > 60; Glucose 248 mg/dL (65-110); HDL Direct 24 mg/dL; Potassium 4.3 mmol/L (3.4-5.0); Sodium 139 mmol/L (137-145); Triglycerides 103 mg/dL (<150)
[2023-12-21 09:50] LABS: LDL Cholesterol Direct 117 mg/dL
[2023-12-21 10:00] LABS: Hemoglobin A1C 8.6 % (<5.7)
[2023-12-21 10:05] LABS: Appearance Urine Clear (Clear); Bilirubin Urine Negative (Negative); Blood Urine Negative (Negative); Color Urine Yellow (Yellow); Glucose Urine UA 3+ mg/dL (Negative); Ketones Urine 1+ mg/dL (Negative); Leukocyte Esterase Ur Negative LEU/UL (NEGATIVE); Nitrate Urine Negative (Negative); Protein Urine Negative (Negative); pH Urine 6.5 (5.0-9.0)
[2023-12-21 10:09] LABS: Prostate Specific Antigen 0.4 ng/mL (< OR = 4.0)
[2023-12-21 10:10] LABS: Creatinine Urine 151.4 mg/dL
[2023-12-21 10:15] LABS: MALB Creatinine Ratio 14.3 mg/g (0-30); Microalbumin Urine Random 21.7 mg/L (0-16.7)
[2023-12-21 10:24] LABS: Specific Grav Ur 1.041 (1.001-1.035)
[2023-12-21 10:30] LABS: Add Urine Microscopic? NO
== END 2023-12-21 09:01 | disposition home or self-care (01) ==
PROVIDERS: PCP Family Medicine; Visit Provider Physician Assistant
DX: Z00.00 Encounter for general adult medical examination without abnormal findings (principal); Z12.5 Encounter for screening for malignant neoplasm of prostate; E78.5 Hyperlipidemia, unspecified; E05.90 Thyrotoxicosis, unspecified without thyrotoxic crisis or storm; E11.9 Type 2 diabetes mellitus without complications
CPT/HCPCS: 36415; 80053; 80061; 81003; 82043; 83036; 84153; 84439; 84443; 85027; G0103

== ENCOUNTER 2024-05-06 14:57 | Outpatient (CLI) | payer OTHER, SELFPAY ==
--- NOTE | ~2024-05-06 | CT_ITS ---
CT Scan of the Chest without Contrast: Clinical Indication: Lung cancer screening, nicotine dependence Technique: Contiguous sections were acquired throughout the chest without intravenous contrast. Dose reduction technique was used on this scan by utilizing automated exposure control and iterative recon struction technique. The dose-length product (DLP) was 313.77 mGy-cm. COMPARISON: 11/24/2020 Findings: Stable large right thyroid lobe. There is no evidence of any significant mediastinal, hilar or axillary lymphadenopathy. The mediastin al soft tissues appear normal. There is no evidence of pleural or pericardial effusion. Stable small fissural nodules along the right minor fissure. Stable 3 mm left lower lobe pulmonary no dule (axial image 108). Images through the upper abdomen reveal no abnormalities. Impression: Lung RADS 2: Benign appearance. 12 month follow-up screening CT advised. Reviewed, dictated and finalized at [facility]. Impression: Lung RADS 2: Benign appearance. 12 month follow-up screening CT advised.
== END 2024-05-06 14:58 | disposition home or self-care (01) ==
PROVIDERS: PCP Family Medicine; Visit Provider Physician Assistant
DX: Z12.2 Encounter for screening for malignant neoplasm of respiratory organs (principal); Z87.891 Personal history of nicotine dependence
CPT/HCPCS: 71271

== ENCOUNTER 2024-05-31 16:11 | Outpatient (CLI) | payer OTHER, SELFPAY ==
[2024-05-31 17:23] LABS: Thyroid Stimulating Hormone 0.055 uIU/mL (0.465-4.680); Total Triiodothyronine (T3) 1.33 NG/ML (0.97-1.69)
[2024-05-31 17:25] LABS: Free T4 Free Thyroxine 1.02 ng/mL (0.78-2.19)
== END 2024-05-31 16:12 | disposition home or self-care (01) ==
LOC: ANHLAB 16:12
PROVIDERS: PCP Family Medicine; Visit Provider Physician Assistant
DX: E05.90 Thyrotoxicosis, unspecified without thyrotoxic crisis or storm (principal)
CPT/HCPCS: 36415; 84439; 84443; 84480

== ENCOUNTER 2024-06-20 10:52 | Outpatient (CLI) | payer OTHER, SELFPAY ==
[2024-06-20 11:27] LABS: Alanine Aminotransferase 29 U/L (6-50); Albumin Level 4.2 g/dL (3.5-5.1); Alkaline Phosphatase 73 U/L (38-126); Anion Gap 10 mmol/L (4-12); Aspartate Amino Transferase 19 U/L (17-59); Bilirubin,Total 0.4 mg/dL (0.2-1.3); Blood Urea Nitrogen 27 mg/dL (9-20); Calcium 9.2 mg/dL (8.4-10.2); Carbon Dioxide 25 mmol/L (22-30); Chloride 104 mmol/L (98-107); Estimated Glomerular Filt Rate > 60; Glucose 132 mg/dL (65-110); Potassium 4.3 mmol/L (3.4-5.0); Sodium 139 mmol/L (137-145)
[2024-06-20 14:13] LABS: Hemoglobin A1C 6.3 % (<5.7)
== END 2024-06-20 10:53 | disposition home or self-care (01) ==
LOC: ANHLAB 10:54
PROVIDERS: PCP Family Medicine; Visit Provider Physician Assistant
DX: E11.9 Type 2 diabetes mellitus without complications (principal); E78.5 Hyperlipidemia, unspecified
CPT/HCPCS: 36415; 80053; 83036

== ENCOUNTER 2024-08-30 09:46 | Outpatient (RCR) | payer OTHER, SELFPAY ==
[2024-08-30 10:49] LABS: Free T4 Free Thyroxine 0.87 ng/mL (0.78-2.19)
[2024-08-30 10:50] LABS: Thyroid Stimulating Hormone 0.782 uIU/mL (0.465-4.680)
[2024-09-02 18:14] LABS: Triiodothyronine T3 Free 3.8 pg/mL (2.3-4.2)
== END 2024-11-28 23:59 | disposition home or self-care (01) ==
LOC: ANHLAB 09:46
PROVIDERS: PCP Family Medicine; Visit Provider Internal Medicine Endocrinology, Diabetes & Metabolism
DX: E05.20 Thyrotoxicosis with toxic multinodular goiter without thyrotoxic crisis or storm (principal)
CPT/HCPCS: 36415; 84439; 84443; 84481

== ENCOUNTER 2024-12-27 17:44 | Outpatient (CLI) | payer OTHER, SELFPAY ==
--- OUTSIDE RECORDS SUMMARY | 2024-12-27 17:47 | XMS_ITS | Clinical Summary ---
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 Assessment & Plan (08/30/2024 9:00 AM CDT): Chronic, stable We will try to obtain patient previous records from [facility] Currently on methimazole 5 mg oral daily Repeat thyroid function test today and further plans based on it Follow-up in 1 year Thyroid nodule 08/30/2024 Assessment & Plan (08/30/2024 9:01 AM CDT): History of thyroid nodule status post FNA biopsy at least 5 years back with benign cytology No records available at this time to review We will try to obtain patient's records from [facility] Encounters Date Type Department Care Team Description 10/16/2024 Telephone [facility] Special[facility] [id number] [place] [address] [address] [place] [address] Jaret Vela MD from Last 3 Months Surgical History Surgery Date Site/Laterality Comments SHOULDER SURGERY HERNIA REPAIR Medical History Medical History Date Comments High cholesterol Type 2 diabetes mellitus (HCC) Obesity Hyperthyroidism Thyroid nodule Family History Medical History Relation Name Comments Diabetes Father Diabetes Mother Relation Name Status Comments Father Mother Social History Tobacco Use Types Packs/Day Years Used Date Smoking Tobacco: Every Day Cigarettes Tobacco Cessation:Ready to Q uit: Not Asked; Counseling Given: Not Answered Personal Safety Answer Date Recorded Getting School Help Needed Not on file 06/10 Sex and Gender Information Value Date Recorded Sex Assigned at Not on file Legal Sex Male 12:53 PM CDT Gender Identity Not on file Sexual Orientation Not on file Obstetrics History Last Filed Vital Signs Vital Sign Reading Time Taken Comments Blood Pressure 124/70 08/30/2024 8:44 AM CDT Pulse 60 08/30/2024 8:44 AM CDT Temperature - - Respiratory Rate 16 08/30/2024 8:44 AM CDT Oxygen Saturation - - Inhaled Oxygen Concentration - - Weight 111.1 kg (245 lb) 08/30/2024 8:44 AM CDT Height 177.8 cm (5' 10 ) 08/30/2024 8:44 AM CDT Body Mass Index 35.15 08/30/2024 8:44 AM CDT Plan of Treatment Health Maintenance Due Date Last Done Comments Colon Cancer Screening-Colonoscopy 1969 Depression Screening 1969 Hepatitis C Screening 1969 Prostate Cancer Screening-PSA 1969 Pneumococcal vaccine <65 (1 of 2 - PCV) 1975 DTaP/Tdap/Td Vaccine (1 - Tdap) 1980 Hepatitis B Screening 1987 Regular Well Visit/Exam 18-64 1987 Zoster Vaccine (1 of 2) 2019 Covid-19 Vaccine (3 - season) 2024, 04/08/2021 Influenza Vaccine (#1) 2024 Insurance Care Teams Electric Screw Driver Operator Relationship Specialty Start Date End Date Lorenzo Barlow PA [address] [facility] [address] [place] [address] PCP - General Physician Market Development Executive 06/10/24
--- OUTSIDE RECORDS SUMMARY | 2024-12-27 17:47 | XMS_ITS | Referral Summary ---
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 Take 1 tablet (5 mg total) by mouth daily 90 tablet 3 08/30/2024 Active Active Problems Problem Noted Date Diagnosed Date 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 Assessment & Plan (08/30/2024 9:00 AM CDT): Chronic, stable We [facility] Currently on methimazole 5 mg oral daily [...] will try to obtain [facility] records [facility] Social History Tobacco Use Types Packs/Day Years [...] on file Sexual Orientation Not on file Last Filed Vital Signs Vital Sign Reading [...] 08/30/2024 8:44 AM CDT Plan of Treatment Not on file Insurance [facility] Care Teams Manager Agriculture Relationship Specialty Start Date End Date Lorenzo Barlow PA [address] [facility] [address] [place] [address] PCP - General Physician Electrical Linesworker 06/10/24
[2024-12-27 18:01] LABS: Hematocrit 52.6 % (42.0-52.0); Mean Corpuscular HGB Conc 34.2 g/dl (32-36); Mean Corpuscular Hemoglobin 29.8 pg (26-34); Mean Corpuscular Volume 86.9 fl (80-100); Mean Platelet Volume 9.6 fl (7.4-10.4); Platelet Count Result 179 k/mm3 (150-375); Red Blood Count 6.05 M/mm3 (4.6-6.20)
[2024-12-27 18:07] LABS: Add Urine Microscopic? YES; Appearance Urine Clear (Clear); Bacteria Urine None Seen /hpf; Bilirubin Urine Negative (Negative); Blood Urine Trace (Negative); Color Urine Yellow (Yellow); Glucose Urine UA Negative (Negative); Ketones Urine Negative (Negative); Leukocyte Esterase Ur Negative LEU/UL (Negative); Nitrate Urine Negative (Negative); Non Pathogenic Casts 0-2; Protein Urine Negative (Negative); RBC Urine 0-2 /hpf (0-2); Specific Grav Ur 1.026 (1.001-1.035); Squamous Epithelial Cell Urine None Seen /hpf (Few); Urobilinogen Urine 0.2 mg/dL (<2.0); WBC Urine 0-5 /hpf (0-3)
[2024-12-27 18:13] LABS: Alanine Aminotransferase 38 U/L (6-50); Albumin Level 4.2 g/dL (3.5-5.1); Alkaline Phosphatase 64 U/L (38-126); Anion Gap 7 mmol/L (4-12); Aspartate Amino Transferase 22 U/L (17-59); Bilirubin,Total 0.9 mg/dL (0.2-1.3); Blood Urea Nitrogen 20 mg/dL (9-20); Carbon Dioxide 30 mmol/L (22-30); Chloride 103 mmol/L (98-107); Cholesterol 150 mg/dL (0-200); Estimated Glomerular Filt Rate > 60; Glucose 128 mg/dL (65-110); HDL Direct 29 mg/dL; Potassium 3.7 mmol/L (3.4-5.0); Sodium 140 mmol/L (137-145); Triglycerides 111 mg/dL (<150)
[2024-12-27 18:24] LABS: LDL Cholesterol Direct 107 mg/dL
[2024-12-27 18:28] LABS: Creatinine Urine 190.1 mg/dL
[2024-12-27 18:32] LABS: MALB Creatinine Ratio 11.1 mg/g (0-30); Microalbumin Urine Random 21.1 mg/L (0-16.7)
[2024-12-27 18:43] LABS: Prostate Specific Antigen 0.7 ng/mL (< OR = 4.0)
[2024-12-27 20:03] LABS: Hemoglobin A1C 7.4 % (<5.7)
== END 2024-12-27 17:45 | disposition home or self-care (01) ==
LOC: ANHLAB 17:45
PROVIDERS: PCP Family Medicine; Visit Provider Physician Assistant
DX: Z00.00 Encounter for general adult medical examination without abnormal findings (principal); E11.9 Type 2 diabetes mellitus without complications; E78.5 Hyperlipidemia, unspecified; E05.90 Thyrotoxicosis, unspecified without thyrotoxic crisis or storm; R35.1 Nocturia; Z12.5 Encounter for screening for malignant neoplasm of prostate
CPT/HCPCS: 36415; 80053; 80061; 81001; 82043; 83036; 84153; 85027

== ENCOUNTER 2025-07-11 11:45 | Outpatient (CLI) | payer OTHER, SELFPAY ==
--- OUTSIDE RECORDS SUMMARY | 2025-07-11 11:52 | XMS_ITS | Clinical Summary ---
Author Organization [facility] Physician Office Building [address] [place] [address] Care Team Providers Care Tire Retreader Name Role Phone Lorenzo Barlow Primary Care Provider [phone] [phone] Allergies No known active allergies Medications atorvastatin [...] try to obtain patient previous records from [facility] Currently on methimazole 5 mg [...] will try to obtain patient's records from [facility] Surgical History Surgery Date Site/Laterality Comments SHOULDER SURGERY HERNIA REPAIR Medical History Medical History Date Comments High cholesterol Type 2 diabetes mellitus Obesity Hyperthyroidism Thyroid nodule Family History Medical [...] 8:44 AM CDT Height 177.8 cm (5' 10) 08/30/2024 8:44 AM CDT Body Mass Index 35.15 08/30/2024 8:44 AM CDT Plan of Treatment Health Maintenance Due Date Last Done Comments Colon Cancer Screening-Colonoscopy 1969 Depression Screening 1969 Hepatitis C Screening 1969 Prostate Cancer Screening-PSA 1969 DTaP/Tdap/Td Vaccine (1 - Tdap) 1980 Hepatitis B Screening 1987 Regular Well Visit/Exam 18-64 1987 Pneumococcal vaccine <65 (1 of 2 - PCV) 1988 Zoster Vaccine (1 of 2) 2019 Covid-19 Vaccine (3 - season) 2024, 04/08/2021 Influenza Vaccine (#1) 2025 Insurance Care Teams Tire Retreader Relationship Specialty Start Date End Date Lorenzo Barlow PA [address] [facility] [address] [place] [address] PCP - General Physician Supervisor Sterile Processing 06/10/24
[2025-07-11 12:22] LABS: Hemoglobin A1C 7.1 % (<5.7)
[2025-07-11 12:31] LABS: Alanine Aminotransferase 25 U/L (6-50); Albumin Level 4.2 g/dL (3.5-5.1); Alkaline Phosphatase 63 U/L (38-126); Anion Gap 5 mmol/L (4-12); Aspartate Amino Transferase 21 U/L (17-59); Bilirubin,Total 0.4 mg/dL (0.2-1.3); Blood Urea Nitrogen 26 mg/dL (9-20); Calcium 9.2 mg/dL (8.4-10.2); Carbon Dioxide 27 mmol/L (22-30); Chloride 105 mmol/L (98-107); Estimated Glomerular Filt Rate > 60; Glucose 191 mg/dL (65-110); Potassium 4.2 mmol/L (3.4-5.0); Sodium 137 mmol/L (137-145); Total Protein 6.7 g/dL (6.3-8.2)
== END 2025-07-11 11:46 | disposition home or self-care (01) ==
LOC: ANHLAB 11:50
PROVIDERS: PCP Family Medicine; Visit Provider Physician Assistant Medical
DX: E78.5 Hyperlipidemia, unspecified (principal); E11.9 Type 2 diabetes mellitus without complications
CPT/HCPCS: 36415; 80053; 83036

== ENCOUNTER 2025-09-09 15:04 | Outpatient (CLI) | payer OTHER, SELFPAY ==
--- NOTE | ~2025-09-09 | CT_ITS ---
EXAMINATION:CT lung screening DATE: 09/09/2025 15:15 INDICATION: Personal history of nicotine dependence. Cigarettes. TECHNIQUE: Computed tomography (CT) of the chest was performed without intravenous contrast. Automated exposure control and iterative reconstruction technique were employed. The dose-length product (DLP) was 442.53 mGy-cm. COMPARISON: Chest CT 05/06/2024 FINDINGS: There is mild emphysema. Calcified right lung nodules and calcified right hilar and mediastinal lymph nodes are consistent with old granulomatous disease. There are a few scattered pulmonary nodules measuring up to 3 mm. No pleural effusion. Again seen is enlargement of right thyroid lobe. The heart size is normal. There are coronary artery calcifications. No pericardial effusion. Calcifications in the spleen are consistent with old granulomatous disease. There is mild thoracic spondylosis. IMPRESSION: 1. Lung-RADS category 2: Benign appearance or behavior. Continue annual screening with noncontrast low-dose chest CT in 12 months. Reviewed, dictated and finalized at location E. IMPRESSION: 1. Lung-RADS category 2: Benign appearance or behavior. Continue annual screeni ng with noncontrast low-dose chest CT in 12 months.
--- OUTSIDE RECORDS SUMMARY | 2025-09-09 17:22 | XMS_ITS | Clinical Summary ---
Author Organization [facility] Physician Office Building [address] [place] [address] Care Team Providers Care Dowel Pointer Name Role Phone Lorenzo Barlow Primary Care Provider [phone] [phone] Allergies No known active allergies Medications atorvastatin [...] try to obtain patient previous records from [facility] Currently on methimazole 5 mg oral daily [...] will try to obtain patient's records from [facility] Surgical History Surgery Date Site/Laterality Comments SHOULDER [...] of 2) 2019 Covid-19 Vaccine (3 - 2024- season) 2025, 04/08/2021 Influenza Vaccine (#1) [address] [place] [address] [address] [place] [address] Care Teams Dowel Pointer Relationship Specialty Start Date End Date Lorenzo Barlow PA [address] [facility] [address] [facility] [address] [place] [address] PCP - General Physician Metallurgist Helper 06/10/24
== END 2025-09-09 15:05 | disposition home or self-care (01) ==
LOC: ANHIMG 15:05
PROVIDERS: PCP Family Medicine; Visit Provider Physician Assistant
DX: Z12.2 Encounter for screening for malignant neoplasm of respiratory organs (principal); Z87.891 Personal history of nicotine dependence
CPT/HCPCS: 71271

== ENCOUNTER 2025-10-21 14:11 | Outpatient (CLI) | payer OTHER, SELFPAY ==
--- NOTE | ~2025-10-21 | CT_ITS ---
EXAM/PROCEDURE: CT sinus wo con HISTORY: J34.3 - Hypertrophy of nasal turbinates COMPARISON: None available. TECHNIQUE: Paranasal sinus CT FINDINGS: Minimal ethmoidal air cell opacification and mucoperiosteal thickening present. The ostiomeatal complexes are patent bilaterally. Maxillary, frontal and sphenoid sinuses all are fully aerated. The nasal septum is midline. Turbinates appear normal. Surrounding bones and soft tissues unremarkable. Mastoid air cells and middle ear cavities fully aerated. IMPRESSION: Minimal sigmoidal air cell disease. The paranasal sinuses are fully aerated and the ostiomeatal complexes are patent. Reviewed, dictated and finalized at location A. SUPERVISOR
--- OUTSIDE RECORDS SUMMARY | 2025-10-21 16:15 | XMS_ITS | Clinical Summary ---
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 Assessment & Plan (08/30/2024 9:00 AM CDT): Chronic, stable We will try to obtain patient previous records from [facility] Currently on methimazole 5 mg oral [...] will try to obtain patient's records from [facility] Encounters Date Type Department Care Team Description 09/15/2025 9:00 AM VAULT SERVICE MECHANIC Office Visit [facility] Diabetes and Endocrinology [facility] [place] [address] Jaret Vela MD 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 (Primary Dx) from Last 3 Months Surgical History Surgery [...] uit: Not Asked; Counseling Given: Not Answered Sex and Gender Information Value Date Recorded Sex Assigned at Not on file Legal Sex Male 12:53 PM CDT Gender Identity Not on file Sexual Orientation Not on file Last Filed Vital Signs Vital Sign Reading Time Taken Comments Blood Pressure 122/78 09/15/2025 8:47 AM VAULT SERVICE MECHANIC Pulse 73 09/15/2025 8:47 AM VAULT SERVICE MECHANIC Temperature - - Respiratory Rate 15 09/15/2025 8:47 AM VAULT SERVICE MECHANIC Oxygen Saturation - - Inhaled Oxygen Concentration - - Weight 113.4 kg (250 lb) 09/15/2025 8:47 AM VAULT SERVICE MECHANIC Height 177.8 cm (5' 10) 09/15/2025 8:47 AM VAULT SERVICE MECHANIC Body Mass Index 35.87 09/15/2025 8:47 AM VAULT SERVICE MECHANIC Plan of Treatment Health Maintenance Due Date Last Done Comments Colon Cancer Screening-Colonoscopy 1969 Depression Screening 1969 Hepatitis C Screening 1969 Prostate Cancer Screening-PSA 1969 Hepatitis B Screening 1987 Regular Well Visit/Exam 18-64 1987 Pneumococcal vaccine <65 (1 of 2 - PCV) 1988 Zoster Vaccine (1 of 2) 2019 DTaP/Tdap/Td Vaccine (2 - Td or Tdap) 12/02/2021 Covid-19 Vaccine (3 - 2024- season) 2025, 04/08/2021 Influenza Vaccine (#1) 2025 Insurance Care Teams Form Tamping Machine Operator Relationship Specialty Start Date End Date Lorenzo Barlow PA [address] [facility] [address] [facility] [address] [place] [address] PCP - General Physician Family Resource Management Professor 06/10/24
== END 2025-10-21 14:12 | disposition home or self-care (01) ==
PROVIDERS: PCP Family Medicine; Visit Provider Otolaryngology
DX: J34.3 Hypertrophy of nasal turbinates (principal); J34.2 Deviated nasal septum; R09.81 Nasal congestion; R44.8 Other symptoms and signs involving general sensations and perceptions
CPT/HCPCS: 70486